=== PATIENT | female | born 1970 | race Caucasian/White ===

== ENCOUNTER 2017-09-01 07:41 | Inpatient (IN) ==
--- NOTE | 2017-08-31 09:12 | Discharge Summary ---
Date of Encounter: 09/03/17 Time of Encounter: 06:36 - Discharge Diagnosis (1) Status post total left knee replacement Priority: Primary Status: Acute (2) Arthritis of left knee Priority: Primary Status: Chronic - Discharge Medications Home Medications: FLUoxetine HCl [Prozac] 20 mg PO DAILY 07/05/17 [History] Omeprazole 10 mg PO DAILY 07/05/17 [History] SUMAtriptan Succinate [Imitrex] 100 mg PO AD PRN 07/05/17 [History] Aspirin Enteric Coated [Aspirin EC] 325 mg PO BID #20 tablet. 09/01/17 [Rx] Levonorgestrel-Ethin Estradiol [Trivora-28 Tablet] 1 each PO DAILY 09/01/17 [ History] OxyCODONE Immed Rel [Roxicodone 5 MG] 5 mg PO Q4HR PRN 5 Days #24 tablet [Rx] Allergies/Adverse Reactions: 3 Allergy/AdvReac Type Severity Reaction Status Date / Time No Known Allergies Allergy Verified 08/20/17 13:31 Primary care physician: Sonali Amezquita CNP - Patient Status Disposition: Home Health Service Condition: Good Functional capacity at discharge: uses cane/walker Overall status at discharge: patient is progressing back to baseline - Discharge Instructions Follow Up With: Sonali Amezquita CNP [Primary Care Provider] - - Hospital Course Hospital course: Ms. Rivera is a 46 year old female Status post left total knee replacement The patient had an uneventful postoperative course. They received antibiotics and physical therapy and were discharged in stable condition. There will follow -up in the office in 2 weeks. - Time Spent with Patient Total time spent providing and/or coordinating discharge services:
--- NOTE | 2017-09-01 07:51 | History & Physical Report ---
Date of Encounter: 09/01/17 Time of Encounter: 07:50 24 Hour HP Update - Instructions Instructions: If the History and Physical is less than 30 days old and was completed prior to A.M. admission and or procedure and has NOT been updated on calendar day of procedure please complete this update prior to performing procedure. - Update Patient reports changes in Medical Condition: No Changes in examination, assessment, or condition: No Changes in Medication: No Preop tests/diagnostics Reviewed: Yes Surgery Remains Indicated: Yes Consent for Planned Operative Procedure(s) Verified: Yes - Pre-Operative Checklist Preoperative Checklist Indicated: No Prophylactic Antibiotic Ordered: Yes Is VTE Prophylaxis Indicated?: Yes
[2017-09-01] MEDS ORDERED: CeFAZolin Syr 2,000MG/20 ML 2,000 MG/20 ML SYRINGE IVPB ONE (07:58)
[2017-09-01] MEDS ORDERED: Plasma-Lyte A (PH 7.4) 1,000 ML IVC SCH (08:00)
[2017-09-01] MEDS ORDERED: Ethanol\\Acetic Acid\\Na Ace\\Ben 1,000 ML IRRIG.SOLN IR ONE (08:10)
--- NOTE | 2017-09-01 08:24 | Anesthesia Evaluation PreOp ---
Date of Encounter: 09/01/17 Time of Encounter: 08:21 - Past History Planned Operation: left total knee Cardiac History: Denies any Significant Hx Pulmonary History: Denies Any Significant HX STUDIO CAMERA OPERATOR History: Denies Any Significant HX Other Medical History: GERD, Other (migraines, depression) Anesthesia History: No Prior Anesthetic Complications, Past Anesthesia (knee scope, breast reduction) Test: Negative (09/01/2017) Alcohol Use: none Drug use: none Medications and Allergies Clindamycin [Cleocin] 150 mg PO Q6HR #7 capsule 07/05/17 [Rx] FLUoxetine HCl [Prozac] 20 mg PO DAILY 07/05/17 [History] HYDROcodone/Acet 5/325 mg [Sealy 5-325 mg] 1 tab PO Q6H PRN #14 tab 07/05/17 [Rx ] Ibuprofen [Motrin] 600 mg PO Q8HR #20 tab 07/05/17 [Rx] Omeprazole 10 mg PO DAILY 07/05/17 [History] SUMAtriptan Succinate [Imitrex] 100 mg PO AD PRN 07/05/17 [History] Aspirin Enteric Coated [Aspirin EC] 325 mg PO BID #20 tablet. 09/01/17 [Rx] OxyCODONE Immed Rel [Roxicodone 5 MG] 5 mg PO Q4HR PRN 5 Days #24 tablet [Rx] 3 Allergy/AdvReac Type Severity Reaction Status Date / Time No Known Allergies Allergy Verified 08/20/17 13:31 - Meds/Allergy Pre-op Review Medications Reviewed: Yes Allergies Reviewed: Yes Beta Blockers on Current Med List: No Anesthesia Results - Labs Laboratory Tests 08/20/17 08/20/17 08/20/17 13:56 13:56 13:56 WBC 6.3 RBC 4.14 Hgb 13.2 Hct 39.7 Plt Count 319 PT 10.4 INR 1.0 APTT 29.3 Sodium 137 Potassium 3.4 L Chloride 110 H Carbon Dioxide 19 L BUN 10 Creatinine 0.60 Anesthesia Exam O2 Sat Height 1.63 m Height 1.63 m Height 0 cm Weight 93.894 kg Weight 93.894 kg Weight 0 g O2 Sat by Pulse Oximetry 98 O2 Sat by Pulse Oximetry 98 O2 Sat by Pulse Oximetry 98 O2 Sat by Pulse Oximetry 99 Vital Signs Temp Pulse Resp BP Pulse Ox 98 F 90 16 148/89 99 09/01/17 07:45 09/01/17 07:45 09/01/17 07:45 09/01/17 07:45 09/01/17 07:45 Height: 5'4'' Weight: 207 lbs NPO (# of Hours): 8 Pain Scale: 0 Pain Scale Used: Numeric (1 - 10) - HEENT Pupil (Motor): Pupils equal Mallampati: II Teeth: Normal Oral Opening: Greater than 3 - STUDIO CAMERA OPERATOR LOC: Oriented STUDIO CAMERA OPERATOR Motor: Normal RUE, Normal LUE, Normal RLE, Normal LLE, Normal Face STUDIO CAMERA OPERATOR Sensory: Normal: RUE, LUE, RLE, LLE, Face - Cardiac Rhythm: Regular Murmur: None JVD: No Carotid Bruit: No - Pulmonary Breath Sounds: bilateral Clear Respiratory Effort: Symmetrical Anesthesia Assess/Plan ASA Score: 2 Modified Do Scale for Level of Consciousness: Cooperative, oriented, and tranquil Anesthetic Plan: Regional Monitoring Plan: Standard Monitors Recovery Plan: PACU
[2017-09-01] MEDS ORDERED: *HR* Morphine Sulfate/PF 10 MG/10 ML AMPUL ONE (08:41)
[2017-09-01] MEDS ORDERED: *HR* Ropivacaine/PF 0.5% 20 ML VIAL ONE (08:41)
[2017-09-01] MEDS ORDERED: *HR* Midazolam HCl 5 MG/5 ML VIAL IVP ONE (08:45)
[2017-09-01] MEDS ORDERED: *HR* FentaNYL (PF) 100 MCG/2 ML VIAL ONE (08:45)
[2017-09-01] MEDS ORDERED: Propofol 500 MG/50 ML INFUS..BTL ONE (08:55)
[2017-09-01] MEDS ORDERED: Ondansetron 4 MG/2 ML VIAL IVP ONE (09:22)
[2017-09-01] MEDS ORDERED: *HR* OxyCODONE Immed Rel 5 MG TABLET PO PRN (09:22)
[2017-09-01] MEDS ORDERED: *HR* Propofol 200 MG/20 ML VIAL IVP ONE (10:52)
--- NOTE | 2017-09-01 11:05 | Anesthesia Procedures ---
Date of Encounter: 09/01/17 Time of Encounter: 11:03 Procedures: Anesthesia - Nerve Block Procedure Date: 09/01/17 Time: 08:45 Allergies/Adv Reactions: No Known Allergies Allergy (Verified 08/20/17 13:31) Pre-op Diagnosis: oa left knee Surgical Procedure: orif left knee Checklist: Correct Patient Identifier, Correct procedure, History checked Correct side: Left Blood Thinner: No Monitor Applied: EKG, BP, Pulse Oximetry Supplemental Oxygen via Nasal Cannula (L/min): 2 Sedation: Versed (mg): 5 Sedation: Fentanyl (mcg): 100 Indication: Post Op Analgesia Pre-op Neuro Deficits: No Block Type: Femoral Catheter placed: No Sterile Technique: Yes Ultrasound used: Yes Anatomy identified: Yes Visual spread of Local: Yes Neuro Stimulation: No Blood on Needle Aspiration: No Smooth Injection of Local: Yes Pain with Injection of Local: No Prep: Chlorhexadine Needle: 22 x 50 mm Stimuplex Local: Ropivacaine (0.5) Volume (cc): 30 Number of Attempts: 1 Complications: None/effective block
[2017-09-01] MEDS ORDERED: Sennosides 8.6 MG TABLET PO PRN (12:05)
[2017-09-01] MEDS ORDERED: Naloxone 0.4 MG/ML INJ IVP PRN (12:05)
[2017-09-01] MEDS ORDERED: Ringers Solution, Lactated 1,000 ML IVC SCH (12:05)
[2017-09-01] MEDS ORDERED: Temazepam 15 MG CAPSULE PO PRN (12:05)
[2017-09-01] MEDS ORDERED: MOM Conc 10 ML UD.LIQ PO PRN (12:05)
--- NOTE | 2017-09-01 12:13 | Anesthesia Evaluation Post Op ---
Date of Encounter: 09/01/17 Time of Encounter: 12:13 - Vital Signs Vital Signs: Vital Signs/O2 Sat, Most Current Temp Pulse Resp BP Pulse Ox 98.0 F 87 16 148/89 98 09/01/17 09:32 09/01/17 09:32 09/01/17 09:32 09/01/17 09:32 09/01/17 09:32 - Lungs Lungs: Clear Ascult./Percussion - Airway Airway: Non-obstructed - Cardiovascular Regular Rate - Mental Status Mental Status: Alert & Oriented, Answers Appropriately - Pain Pain Scale: 0 Pain Scale used: Numeric (1 - 10) - Nausea Vomiting Nausea Vomiting: Not Present - Hydration Hydration: Tolerates oral liquids, Has not voided - Discharge PostOp Status: Transfer Patient to floor
[2017-09-01] MEDS: Ondansetron 4 MG/2 ML VIAL IVP PRN ×2 (12:28→18:31)
[2017-09-01] MEDS: Plasma-Lyte A (PH 7.4) 1,000 ML IVC SCH (12:48)
[2017-09-01 13:13] LABS: Hematocrit 35.9 % (35.3-44.9); Hemoglobin 12.2 g/dL (11.5-15.4)
[2017-09-01] MEDS ORDERED: *HR* Promethazine 25 MG/ML VIAL IVP PRN (13:19)
--- NOTE | 2017-09-01 13:58 | Orthopedic Operative Note ---
Date of procedure: 09/01/17 Pre-op diagnosis: Left knee arthritis Procedure: Procedure: Left robotic-assisted Total knee replacement Estimated blood loss: 300 cc Hardware: Metal and polyethylene replacement. Brayden Femur: 3 Tibia: 3 PS insert: 13 Patella: 33 Exam Under anesthesia: Hyperextension 7 degrees 4 degrees varus as calculated by the robot full flexion and no instability Procedural Notes: Grade 3 arthritic changes patellofemoral joint medial compartment Operative procedure: The patient was brought to the operating room and placed on the operating room table. After general anesthesia was administered the operative knee was examined. Findings were noted in the exam under anesthesia. The operative extremity was prepped and draped in sterile surgical fashion. The patient received IV antibiotics prior to skin incision. A standard midline incision was made centered over the patella. The incision was made through the skin and subcutaneous tissue. A medial parapatellar tendon approach was performed. Care was taken to preserve tissue along the medial aspect of the patella. And to protect the patella tendon. The deep MCL was released off the medial tibia. The infra patella fat pad was excised. The patella was everted and cut was made at the level of the insertion of the quadriceps and patella tendon. The patella was sized to 33 the guide was seated and the lug holes are drilled. Knee was brought into flexion. Patient noted to have grade 3 arthritic changes medial compartment patellofemoral joint. Steinmann pins were placed in the tibia and the femur for the tibial and femoral arrays respectively. Checkpoints were also placed in the tibia and the femur for calculation purposes. The knee including the femur and the tibial registered. Osteophytes , ACL and PCL were excised at this point. Extension and flexion were assessed with a valgus stress components were adjusted on the computer to balance the knee. Femoral cuts were made first with robotic assistance, these included the anterior cut posterior cuts chamfer cuts. Tibial cut was then performed with robotic assistance as well. Bone fragments were removed, as well as the medial and lateral meniscus. The size 3 femoral guide was seated box cut was made lug holes are drilled. The size 3 tibial tray was seated and prepared with the fin cutter. Trial reduction with the 13 PS Bing revealed extension of 0 degree, 0 degrees varus and full flexion. No varus valgus instability. Trial reduction revealed excellent patella tracking. All trial components were removed all bony surfaces were irrigated. The Tibia was seated followed by the femur, The Bing size 13 was seated and secured patella. Patient had similar findings for motion and stability. The knee was closed by the PA. The knee was then irrigated out with 2 L of pulse irrigation. The extensor mechanism was closed with #2 FiberWire suture and #2 PDS suture. The subcutaneous tissue was then irrigated and closed deep with #1 PDS suture superficially with 0 PDS suture and skin was closed with zip tie The patient was then placed in a sterile dressing and a postoperative brace extubated and transferred to recovery room in stable condition. Anesthesia: GETA Surgeon: Evan Palm Was there an assistant portfolio manager present: Yes Associate Professor Computer Science: Margarita Louis Estimated blood loss (cc): 300 Condition: stable Disposition: PACU
[2017-09-01] MEDS ORDERED: SUMAtriptan succinate 50 MG TABLET PO PRN (15:14)
[2017-09-01] MEDS: CeFAZolin Premix DUPLEX 2,000 MG/50 ML BAG IVPB SCH (16:49)
[2017-09-01] MEDS: *HR* Enoxaparin 30 MG/0.3 ML SYRINGE SQ SCH (16:49)
[2017-09-01] MEDS ORDERED: *HR* Enoxaparin 30 MG/0.3 ML SYRINGE SQ SCH (18:00)
[2017-09-01] MEDS: *HR* OxyCODONE Immed Rel 5 MG TABLET PO PRN ×2 (18:34→22:23)
[2017-09-01] MEDS ORDERED: Scopolamine Patch 1.5 MG PATCH.TD72 TD ONE (18:37)
[2017-09-02] MEDS: CeFAZolin Premix DUPLEX 2,000 MG/50 ML BAG IVPB SCH (01:26)
[2017-09-02] MEDS: *HR* OxyCODONE Immed Rel 5 MG TABLET PO PRN ×4 (02:50→20:05)
[2017-09-02 04:37] LABS: Hematocrit 35.1 % (35.3-44.9); Hemoglobin 11.6 g/dL (11.5-15.4)
[2017-09-02 04:52] LABS: BUN/Creatinine Ratio 13 (6-26); Blood Urea Nitrogen 9 mg/dL (6-20); Calcium 8.4 mg/dL (8.6-10.3); Carbon Dioxide 24 mEq/L (23-29); Chloride 103 mEq/L (98-107); Glucose 140 mg/dL (70-105); Osmolality,Calculated 279 (280-300); Potassium 3.7 mEq/L (3.5-5.1); Sodium 134 mEq/L (136-145); eGFR For African Americans > 60 (> 60); eGFR For Non-African Americans > 60 (> 60)
[2017-09-02] MEDS: *HR* Enoxaparin 30 MG/0.3 ML SYRINGE SQ SCH ×2 (06:14→17:48)
[2017-09-02] MEDS: OMEPRAZOLE 10 MG PO SCH (06:15)
[2017-09-02] MEDS: FLUoxetine HCl Oral Soln 20 MG/5 ML UDC PO SCH (08:39)
[2017-09-02] MEDS: Plasma-Lyte A (PH 7.4) 1,000 ML IVC SCH (11:24)
[2017-09-02] MEDS ORDERED: Acetaminophen 325 MG TABLET PO PRN (14:49)
[2017-09-02 15:07] LABS: Hematocrit 34.3 % (35.3-44.9); Hemoglobin 11.9 g/dL (11.5-15.4)
--- NOTE | 2017-09-02 17:40 | Orthopedics Progress Note ---
Date of Encounter: 09/02/17 Time of Encounter: 17:38 Subjective Principal diagnosis: Status post left total knee replacement Interval history: The patient is without complaints. Afebrile vital signs are stable. Incision is clean dry and intact. Neurovascularly intact with regard to bilateral lower extremities. Assessment :stable. Plan mobilize ,continue analgesics, discharge planning. Objective Vital signs: Vital Signs Temp Pulse Resp BP Pulse Ox 09/02/17 17:10 104 90 09/02/17 15:20 101 16 94 09/02/17 14:38 98 F 103 22 126/89 92 09/02/17 10:00 97.6 F 84 16 129/86 95 09/02/17 06:34 97.9 F 87 16 126/84 94 09/02/17 04:14 97.6 F 92 17 128/84 91 09/02/17 01:30 98.3 F 94 17 123/74 92 09/01/17 18:52 98.3 F 89 14 110/75 96 Intake and Output 09/02/17 09/02/17 09/02/17 07:59 15:59 23:59 Intake Total 200 / 200 240 / 240 Output Total 150 / 150 350 / 350 Balance 50 / 50 -110 / -110 Intake: Oral 200 / 200 240 / 240 Output: Urine 150 / 150 350 / 350 Other: Percent of Meal Consumed 50% - Labs CBC & BMP: 09/02/17 14:55 09/02/17 04:02 Labs: Abnormal lab results Hct 34.3 % (35.3-44.9) L 09/02/17 14:55 Sodium 134 mEq/L (136-145) L 09/02/17 04:02 Glucose 140 mg/dL (70-105) H 09/02/17 04:02 Calculated Osmolality 279 (280-300) L 09/02/17 04:02 Calcium 8.4 mg/dL (8.6-10.3) L 09/02/17 04:02 - VTE Documentation of Mechanical Device: Venous foot pump, device Consult Discharge Plan - Plan Referrals: Sonali Amezquita, DISPENSING OPTICIAN [Primary Care Provider] -
[2017-09-03] MEDS: *HR* OxyCODONE Immed Rel 5 MG TABLET PO PRN ×4 (01:40→16:03)
[2017-09-03 05:22] LABS: BUN/Creatinine Ratio 8 (6-26); Blood Urea Nitrogen 5 mg/dL (6-20); Calcium 8.6 mg/dL (8.6-10.3); Carbon Dioxide 27 mEq/L (23-29); Chloride 101 mEq/L (98-107); Glucose 124 mg/dL (70-105); Osmolality,Calculated 281 (280-300); Potassium 3.5 mEq/L (3.5-5.1); Sodium 136 mEq/L (136-145); eGFR For African Americans > 60 (> 60); eGFR For Non-African Americans > 60 (> 60)
[2017-09-03] MEDS: *HR* Enoxaparin 30 MG/0.3 ML SYRINGE SQ SCH ×2 (05:37→19:35)
[2017-09-03 05:38] LABS: Hemoglobin 11.4 g/dL (11.5-15.4)
--- NOTE | 2017-09-03 06:37 | Orthopedics Progress Note ---
Date of Encounter: 09/03/17 Time of Encounter: 06:37 - Assessment and Plan (1) Status post total left knee replacement Current Visit: Yes Status: Acute (2) Arthritis of left knee Current Visit: No Status: Chronic Subjective Principal diagnosis: Status post left total knee replacement Interval history: Patient was seen this morning doing well without complaints. Afebrile vital signs stable. Operative extremity: Neurovascularly intact Dressing clean dry and intact Calves nontender Assessment and plan: Continue with postoperative care Hematocrit 34 discharged Objective Vital signs: Vital Signs Temp Pulse Resp BP Pulse Ox 09/03/17 04:12 98.0 F 101 17 127/83 92 09/03/17 00:01 98.1 F 93 18 128/80 93 09/02/17 19:36 97.9 F 98 18 126/84 93 09/02/17 18:00 105 90 09/02/17 17:10 104 90 09/02/17 15:20 101 16 94 09/02/17 14:38 98 F 103 22 126/89 92 09/02/17 10:00 97.6 F 84 16 129/86 95 Intake and Output 09/02/17 09/02/17 09/03/17 15:59 23:59 07:59 Intake Total 240 / 240 200 / 200 800 / 800 Output Total 350 / 350 Balance -110 / -110 200 / 200 800 / 800 Intake: Oral 240 / 240 200 / 200 800 / 800 Output: Urine 350 / 350 Other: Percent of Meal Consumed 50% # Voids 1 1 Weight 95.3 kg Patient Weight 09/03/17 23:59 Weight 95.3 kg - Labs CBC & BMP: 09/03/17 04:22 09/03/17 04:22 Labs: Abnormal lab results Hgb 11.4 g/dL (11.5-15.4) L 09/03/17 04:22 Hct 34.0 % (35.3-44.9) L 09/03/17 04:22 BUN 5 mg/dL (6-20) L 09/03/17 04:22 Glucose 124 mg/dL (70-105) H 09/03/17 04:22 - VTE Documentation of Mechanical Device: Venous foot pump, device Consult Discharge Plan - Plan Referrals: Sonali Amezquita, SHOVEL ENGINEER [Primary Care Provider] -
[2017-09-03] MEDS: Plasma-Lyte A (PH 7.4) 1,000 ML IVC SCH (08:01)
[2017-09-03] MEDS: OMEPRAZOLE 10 MG PO SCH (08:01)
[2017-09-03] MEDS: FLUoxetine HCl Oral Soln 20 MG/5 ML UDC PO SCH (08:22)
[2017-09-03 12:28] LABS: Albumin 3.5 g/dL (3.5-5.7); Bilirubin,Total 0.6 mg/dL (0.3-1.0); Calcium 8.5 mg/dL (8.6-10.3); Carbon Dioxide 23 mEq/L (23-29); Chloride 104 mEq/L (98-107); Potassium 3.4 mEq/L (3.5-5.1); Sodium 138 mEq/L (136-145)
[2017-09-03 12:30] LABS: Basophils % 0.1 %; Eosinophils # 0.1 K/mcL (0.0-0.6); Eosinophils % 0.8 %; Hematocrit 32.7 % (35.3-44.9); Immature Granulocytes % 0.7 % (0-4); Lymphocytes # 1.2 K/mcL (0.6-4.6); Lymphocytes % 13.2 %; Mean Corpuscular HGB Conc 33.6 g/dL (31.6-35.5); Mean Corpuscular Hemoglobin 32.2 pg (28.0-33.3); Mean Corpuscular Volume 95.6 fL (83.0-100.0); Mean Platelet Volume 10.9 fL (9.4-12.4); Monocytes # 0.9 K/mcL (0.0-1.3); Platelet Count 179 K/mcL (140-400); Red Blood Count 3.42 M/mcL (3.82-4.97); Red Cell Distribution Width 13.9 % (11.5-14.5); Segmented Neutrophils % 75.2 %
[2017-09-03 12:34] LABS: Alanine Aminotransferase 6 Units/L (7-52); Albumin/Globulin Ratio 1.2 (1.1-2.2); Alkaline Phosphatase 71 Units/L (34-104); Aspartate Amino Transferase 12 Units/L (13-39); BUN/Creatinine Ratio 7 (6-26); Blood Urea Nitrogen 4 mg/dL (6-20); Globulin 2.9 g/dL (2.4-3.5); Glucose 105 mg/dL (70-105); Osmolality,Calculated 283 (280-300); Total Protein 6.4 g/dL (6.4-8.9); eGFR For African Americans > 60 (> 60); eGFR For Non-African Americans > 60 (> 60)
[2017-09-03 13:00] LABS: Neutrophils # 6.8 K/mcL (1.6-8.9)
--- NOTE | 2017-09-03 13:15 | Event Note ---
Date of Encounter: 09/03/17 Time of Encounter: 12:00 I was notified by nursing staff that patient was experiencing new onset shortness of breath with exertion while she was ambulating to the restroom. Vitals normal, no diaphoresis. Labs ordered, reviewed. Troponin 0.04, may be a result from recent surgery. EKG showing sinus rhythm. Will repeat troponin in [address] angio ordered to rule out PE secondary to immobilization, recent surgery and new onset SOB. Powerglide needed. Cardiology consulted for further workup of new onset dyspnea with exertion.
--- NOTE | 2017-09-03 16:12 | Cardiology Consult Note ---
Date of Encounter: 09/03/17 Time of Encounter: 16:08 Assessment and Plan (1) SOB (shortness of breath) Current Visit: Yes Status: Acute SOB without chest pain in a young female without CRF's and an unremarkable EKG. Possible demand ischemia on troponin of .04 due to hypoxemia. Serial cardiac markers and ECHO will be obtained to rule out an ischemic event and SHD. If RWMA on ECHO will consider stress test unless elevated CE's which would result in a C instead Discussion w patient/family: The assessment and plan as outlined above was discussed with the patient and/or family members who expressed understanding and agreement. All questions were answered. Thank you for involving us in the care of your patient. Please call with any questions. History of Present Illness Consult date: 09/03/17 Consult reason: Elevated troponin Chief complaint: SOB History of present illness: Ms. Rivera is a 46 year old female no significant CRF's POD # 2 after knee surgery describing NORTH, and low oxygen sats. She has described knee pain for which she received pain meds requiring narcan for reversal at one point. This may have resulted in respiratory depression also along with brderline desaturation. CTA was negative for PE and madisyn no signs of volume overload. EKG is unremarkable and she is denies any chest pain, orthopnea and PND. Past Med Surg Social Fam HX - Past Medical History Medical history: GERD, migraine Psychiatric history: anxiety, depression - Past Surgical History Surgical History: non-contributory - Social History Smoking Status: Former smoker Smokeless Tobacco Status: No Alcohol use: none Drug use: none - Family History Father History Unknown: Yes Hx Family Cancer: Yes (skin cancer) Medications and Allergies FLUoxetine HCl [Prozac] 20 mg PO DAILY 07/05/17 [History] Omeprazole 10 mg PO DAILY 07/05/17 [History] SUMAtriptan Succinate [Imitrex] 100 mg PO AD PRN 07/05/17 [History] Aspirin Enteric Coated [Aspirin EC] 325 mg PO BID #20 tablet. 09/01/17 [Rx] Levonorgestrel-Ethin Estradiol [Trivora-28 Tablet] 1 each PO DAILY 09/01/17 [ History] OxyCODONE Immed Rel [Roxicodone 5 MG] 5 mg PO Q4HR PRN 5 Days #24 tablet [Rx] 3 Allergy/AdvReac Type Severity Reaction Status Date / Time No Known Allergies Allergy Verified 08/20/17 13:31 All Systems Review: The remainder of the systems were reviewed and are negative Physical Examination Vital Signs, Last 4 Hours Temp Pulse Resp BP Pulse Ox 09/03/17 14:52 98.9 F 106 18 122/81 96 General: Conversant, No Apparent Distress HEENT: Atraumatic, Normocephaly, Mucus Membranes Moist Neck: No JVD, Normal carotid pulses Cardiac: Reg Rate and Rhythm, Normal S1 and S2, No Murmur Lungs: Normal Breath Sounds, No Wheeze, Rales, Rhonchi Neuro: Alert and responsive, No focal deficits noted Abdomen: Soft, Non-Tender Skin: No rashes noted on visualized skin Musculoskeletal: No Chest Wall Tenderness Extremities: No Clubbing, No Cyanosis, No Edema, Normal Pulses Results 09/03/17 11:47 09/03/17 11:47 Lab Results 09/03/17 09/03/17 09/03/17 04:22 04:22 11:47 WBC 9.1 Hgb 11.4 L 11.0 L Hct 34.0 L 32.7 L Plt Count 179 Sodium 136 Potassium 3.5 Chloride 101 Carbon Dioxide 27 BUN 5 L Creatinine 0.65 Glucose 124 H Calcium 8.6 Total Bilirubin AST ALT Alkaline Phosphatase Troponin I 09/03/17 09/03/17 11:47 11:47 WBC Hgb Hct Plt Count Sodium 138 Potassium 3.4 L Chloride 104 Carbon Dioxide 23 BUN 4 L Creatinine 0.54 L Glucose 105 Calcium 8.5 L Total Bilirubin 0.6 AST 12 L ALT 6 L Alkaline Phosphatase 71 Troponin I 0.04 H* Consult Discharge Plan - Plan Additional Instructions: Discharge Instructions: Total Knee Replacement Please call [facility] ([phone]), your Primary Care Physician, or report to the Emergency Room if you have any of the following symptoms: Nausea, vomiting, fever greater that 101.5, swelling, chest pain, shortness of breath, increased pain/redness/drainage/odor for your incision site, numbness/ tingling, or any other concerning symptoms. ACTIVITY:Weight-bearing as tolerated. You may progress off support (crutches or walker) as tolerated. MEDICATIONS: Upon discharge resume your home medications. Take all the medications as prescribed. Take a stool softener if taking narcotic pain medications. Stool softeners are only effective if you drink enough fluids. Drink 6-8 glass of water or fluids a day, unless this is not allowed for another health problem. Despite using stool softeners, if you haven't had a bowel movement in 3 days, please switch to a gentle laxative. Gentle laxatives are sold over the counter. You should have a bowel movement within 24 hours, if not call the office. You will be discharged from the hospital with a prescription for pain medication. You are encouraged to decrease the use of narcotic pain medication as tolerated. Should you require a refill, please call the office. [facility] prescribes narcotic pain medication for only 4-6 weeks after surgery. If you require pain medication beyond this time period, you may be referred to your Primary Care Physician or to the Pain Clinic for further evaluation. Plan ahead for refills on pain medication as many narcotics either need to be picked up at the office or mailed. It is best to call 48-72 hours in advance of needing a prescription refill so you don't run out of medication. To help control the post-operative pain, you may take NSAIDs (Aleve,Advil, Motrin, Ibuprofen, Naprosyn) or Tylenol as prescribed on the bottle in addition to the pain medication. ANTICOAGULATION (blood thinners): Continue your Aspirin, Lovenox or Coumadin as prescribed to help prevent a blood clot in the leg or in the lungs. As long as your incision remains dry and you tolerate the NSAIDs (Aleve, Advil, Motrin, ibuprofen, naprosyn), it is OK to use the NSAIDS while you are taking your anticoagulation medication. Should your incision start to drain, stop the NSAID and contact our office. Common symptoms of blood clot in the legs include: localized pain, swelling, calf tenderness, redness or discoloration of the skin. Blood clot in the lung symptoms include: shortness of breath, rapid pulse, sweating, and chest pain that worsens with deep breathing, coughing up blood, lightheadedness, feelings of anxiety. If you experience any of these symptoms notify your physician immediately, go to the emergency room, or if having trouble breathing, call 911. WOUND CARE: Leave the dressing on for 7 to 10days. You may change the dressing if it becomes saturated greater than 50%. Do not get the dressing wet at anytime. Wash your hands with antibacterial soap, rinse and dry prior to any wound care. If you have candie the visiting nurse or rehab facility can remove the stapes 10-14 days after surgery and place steri-strips across the wound. Leave the steri-strips in place until they fall off on their won. You may let water from the shower run on top of the steri-strips. If you do not have a visiting nurse or rehab facility, you will need to return to the office at 10-14 days for the candie to be removed. If you have itching or redness around the dressing call the office. FOLLOW-UP: Please follow up with your surgeon in the orthopedic clinic in 4 weeks from the day of surgery. If you have candie that need to be removed, you will need to come back to the office in 10-14 days from the day of surgery. Referrals: Sonali Amezquita, PLANNING SPECIALIST [Primary Care Provider] -
[2017-09-04 00:02] LABS: Adenovirus Not Detected (Not Detect); Bordetella Pertussis Not Detected (Not Detect); Chlamydophila pneumoniae Not Detected (Not Detect); Coronavirus 229E Not Detected (Not Detect); Coronavirus HKU1 Not Detected (Not Detect); Coronavirus NL63 Not Detected (Not Detect); Coronavirus OC43 Not Detected (Not Detect); Human Metapneumovirus Not Detected (Not Detect); Human Rhinovirus/Enterovirus Not Detected (Not Detect); Influenza A Subtype 2009 H1 Not Detected (Not Detect); Influenza A Untypeable Not Detected (Not Detect); Influenza B Not Detected (Not Detect); Mycoplasma pneumoniae Not Detected (Not Detect); Parainfluenza Virus 1 Not Detected (Not Detect); Parainfluenza Virus 2 Not Detected (Not Detect); Parainfluenza Virus 3 Not Detected (Not Detect); Parainfluenza Virus 4 Not Detected (Not Detect); Respiratory Syncytial Virus Not Detected (Not Detect)
[2017-09-04] MEDS: *HR* OxyCODONE Immed Rel 5 MG TABLET PO PRN ×4 (01:08→14:58)
[2017-09-04] MEDS: *HR* Enoxaparin 30 MG/0.3 ML SYRINGE SQ SCH ×2 (05:46→17:17)
--- NOTE | 2017-09-04 06:17 | Orthopedics Progress Note ---
Date of Encounter: 09/04/17 Time of Encounter: 06:16 - Assessment and Plan (1) Status post total left knee replacement Current Visit: Yes Status: Acute (2) Arthritis of left knee Current Visit: No Status: Chronic Subjective Principal diagnosis: Status post left total knee replacement Interval history: Patient was seen this morning doing well without complaints. Patient with postoperative hypoxemia yesterday being evaluated by cardiology, negative for PE Afebrile vital signs stable. Operative extremity: Neurovascularly intact Dressing clean dry and intact Calves nontender Assessment and plan: Continue with postoperative care Discharge pending cardiac workup Objective Vital signs: Vital Signs Temp Pulse Resp BP Pulse Ox 09/04/17 03:38 98.3 F 95 18 123/83 93 09/04/17 00:00 98.2 F 94 18 121/80 91 09/03/17 19:40 98.0 F 92 18 126/86 92 09/03/17 14:52 98.9 F 106 18 122/81 96 09/03/17 11:11 97.8 F 98 18 131/85 96 09/03/17 08:03 91 09/03/17 06:36 98.6 F 99 18 133/85 91 Intake and Output 09/03/17 09/03/17 09/04/17 15:59 23:59 07:59 Intake Total 120 / 120 450 / 450 400 / 400 Balance 120 / 120 450 / 450 400 / 400 Intake: Oral 120 / 120 450 / 450 400 / 400 Other: Meal Breakfast Percent of Meal Consumed 10% # Voids 2 1 1 Weight 95.1 kg Patient Weight 09/04/17 23:59 Weight 95.1 kg - Labs CBC & BMP: 09/03/17 11:47 09/03/17 11:47 Labs: Abnormal lab results RBC 3.42 M/mcL (3.82-4.97) L 09/03/17 11:47 Hgb 11.0 g/dL (11.5-15.4) L 09/03/17 11:47 Hct 32.7 % (35.3-44.9) L 09/03/17 11:47 Potassium 3.4 mEq/L (3.5-5.1) L 09/03/17 11:47 BUN 4 mg/dL (6-20) L 09/03/17 11:47 Creatinine 0.54 mg/dL (0.60-1.20) L 09/03/17 11:47 Calcium 8.5 mg/dL (8.6-10.3) L 09/03/17 11:47 AST 12 Units/L (13-39) L 09/03/17 11:47 ALT 6 Units/L (7-52) L 09/03/17 11:47 Troponin I 0.04 ng/mL (< 0.04) H* 09/03/17 16:30 - VTE Documentation of Mechanical Device: Venous foot pump, device Consult Discharge Plan - Plan Additional Instructions: Discharge Instructions: Total Knee Replacement Please call [facility] ([phone]), your Primary Care Physician, or report to the Emergency Room if you have any of the following symptoms: Nausea, vomiting, fever greater that 101.5, swelling, chest pain, shortness of breath, increased pain/redness/drainage/odor for your incision site, numbness/ tingling, or any other concerning symptoms. ACTIVITY:Weight-bearing as tolerated. You may progress off support (crutches or walker) as tolerated. MEDICATIONS: Upon discharge resume your home medications. Take all the medications as prescribed. Take a stool softener if taking narcotic pain medications. Stool softeners are only effective if you drink enough fluids. Drink 6-8 glass of water or fluids a day, unless this is not allowed for another health problem. Despite using stool softeners, if you haven't had a bowel movement in 3 days, please switch to a gentle laxative. Gentle laxatives are sold over the counter. You should have a bowel movement within 24 hours, if not call the office. You will be discharged from the hospital with a prescription for pain medication. You are encouraged to decrease the use of narcotic pain medication as tolerated. Should you require a refill, please call the office. [facility] prescribes narcotic pain medication for only 4-6 weeks after surgery. If you require pain medication beyond this time period, you may be referred to your Primary Care Physician or to the Pain Clinic for further evaluation. Plan ahead for refills on pain medication as many narcotics either need to be picked up at the office or mailed. It is best to call 48-72 hours in advance of needing a prescription refill so you don't run out of medication. To help control the post-operative pain, you may take NSAIDs (Aleve,Advil, Motrin, Ibuprofen, Naprosyn) or Tylenol as prescribed on the bottle in addition to the pain medication. ANTICOAGULATION (blood thinners): Continue your Aspirin, Lovenox or Coumadin as prescribed to help prevent a blood clot in the leg or in the lungs. As long as your incision remains dry and you tolerate the NSAIDs (Aleve, Advil, Motrin, ibuprofen, naprosyn), it is OK to use the NSAIDS while you are taking your anticoagulation medication. Should your incision start to drain, stop the NSAID and contact our office. Common symptoms of blood clot in the legs include: localized pain, swelling, calf tenderness, redness or discoloration of the skin. Blood clot in the lung symptoms include: shortness of breath, rapid pulse, sweating, and chest pain that worsens with deep breathing, coughing up blood, lightheadedness, feelings of anxiety. If you experience any of these symptoms notify your physician immediately, go to the emergency room, or if having trouble breathing, call 911. WOUND CARE: Leave the dressing on for 7 to 10days. You may change the dressing if it becomes saturated greater than 50%. Do not get the dressing wet at anytime. Wash your hands with antibacterial soap, rinse and dry prior to any wound care. If you have candie the visiting nurse or rehab facility can remove the stapes 10-14 days after surgery and place steri-strips across the wound. Leave the steri-strips in place until they fall off on their won. You may let water from the shower run on top of the steri-strips. If you do not have a visiting nurse or rehab facility, you will need to return to the office at 10-14 days for the candie to be removed. If you have itching or redness around the dressing call the office. FOLLOW-UP: Please follow up with your surgeon in the orthopedic clinic in 4 weeks from the day of surgery. If you have candie that need to be removed, you will need to come back to the office in 10-14 days from the day of surgery. Referrals: Sonali Amezquita, CAMPAIGN SPECIALIST [Primary Care Provider] -
[2017-09-04] MEDS: Plasma-Lyte A (PH 7.4) 1,000 ML IVC SCH (07:55)
[2017-09-04] MEDS: FLUoxetine HCl Oral Soln 20 MG/5 ML UDC PO SCH (07:58)
--- NOTE | 2017-09-04 10:00 | Cardiology Progress Note ---
Date of Encounter: 09/04/17 Time of Encounter: 09:00 Assessment and Plan (1) SOB (shortness of breath) Current Visit: Yes Status: Acute SOB without chest pain in a young female without CRF's and an unremarkable EKG. Likely demand ischemia on troponin of .04 x2 due to hypoxemia. CTA was negative. TTE shows preserved EF. No WMA, No significant valvular disease. Noted to have moderate pulmonary hypertension. Patient says feels she may have sleep apnea. Recommend out- pt sleep study. Increased SOB may have been related to pain meds. She required narcan during stay. Denies chest pain. No further testing from cardiac standpoint recommended at this time. Cardiology will sign off. Call with questions. Discussion w patient/family: The assessment and plan as outlined above was discussed with the patient and/or family members who expressed understanding and agreement. All questions were answered. Thank you for involving us in the care of your patient. Please call with any questions. Subjective Principal diagnosis: Status post left total knee replacement Interval history: Ms. Rivera stated that she was breathing better. Denies chest pain. Objective Vital Signs, Last 4 Hours Temp Pulse Resp BP Pulse Ox 09/04/17 06:27 97.9 F 89 18 121/80 94 General: Conversant, No Apparent Distress HEENT: Atraumatic, Normocephaly, Mucus Membranes Moist Neck: No JVD, Normal carotid pulses Cardiac: Reg Rate and Rhythm, Normal S1 and S2, No Murmur Lungs: Normal Breath Sounds, No Wheeze, Rales, Rhonchi Neuro: Alert and responsive, No focal deficits noted Abdomen: Soft, Non-Tender Skin: No rashes noted on visualized skin Musculoskeletal: No Chest Wall Tenderness Extremities: No Clubbing, No Cyanosis, No Edema, Normal Pulses Results 09/03/17 11:47 09/03/17 11:47 Lab Results 09/03/17 09/03/17 09/03/17 11:47 11:47 11:47 WBC 9.1 Hgb 11.0 L Hct 32.7 L Plt Count 179 Sodium 138 Potassium 3.4 L Chloride 104 Carbon Dioxide 23 BUN 4 L Creatinine 0.54 L Glucose 105 Calcium 8.5 L Total Bilirubin 0.6 AST 12 L ALT 6 L Alkaline Phosphatase 71 Troponin I 0.04 H* 09/03/17 16:30 WBC Hgb Hct Plt Count Sodium Potassium Chloride Carbon Dioxide BUN Creatinine Glucose Calcium Total Bilirubin AST ALT Alkaline Phosphatase Troponin I 0.04 H* - Imaging and Cardiology Echo: report reviewed - EKG Interpretation EKG results cardiology: personally reviewed (NSR with no ST changes) - VTE Documentation of Mechanical Device: Venous foot pump, device Consult Discharge Plan - Plan Additional Instructions: Discharge Instructions: Total Knee Replacement Please call [facility] ([phone]), your Primary Care Physician, or report to the Emergency Room if you have any of the following symptoms: Nausea, vomiting, fever greater that 101.5, swelling, chest pain, shortness of breath, increased pain/redness/drainage/odor for your incision site, numbness/ tingling, or any other concerning symptoms. ACTIVITY:Weight-bearing as tolerated. You may progress off support (crutches or walker) as tolerated. MEDICATIONS: Upon discharge resume your home medications. Take all the medications as prescribed. Take a stool softener if taking narcotic pain medications. Stool softeners are only effective if you drink enough fluids. Drink 6-8 glass of water or fluids a day, unless this is not allowed for another health problem. Despite using stool softeners, if you haven't had a bowel movement in 3 days, please switch to a gentle laxative. Gentle laxatives are sold over the counter. You should have a bowel movement within 24 hours, if not call the office. You will be discharged from the hospital with a prescription for pain medication. You are encouraged to decrease the use of narcotic pain medication as tolerated. Should you require a refill, please call the office. [facility] prescribes narcotic pain medication for only 4-6 weeks after surgery. If you require pain medication beyond this time period, you may be referred to your Primary Care Physician or to the Pain Clinic for further evaluation. Plan ahead for refills on pain medication as many narcotics either need to be picked up at the office or mailed. It is best to call 48-72 hours in advance of needing a prescription refill so you don't run out of medication. To help control the post-operative pain, you may take NSAIDs (Aleve,Advil, Motrin, Ibuprofen, Naprosyn) or Tylenol as prescribed on the bottle in addition to the pain medication. ANTICOAGULATION (blood thinners): Continue your Aspirin, Lovenox or Coumadin as prescribed to help prevent a blood clot in the leg or in the lungs. As long as your incision remains dry and you tolerate the NSAIDs (Aleve, Advil, Motrin, ibuprofen, naprosyn), it is OK to use the NSAIDS while you are taking your anticoagulation medication. Should your incision start to drain, stop the NSAID and contact our office. Common symptoms of blood clot in the legs include: localized pain, swelling, calf tenderness, redness or discoloration of the skin. Blood clot in the lung symptoms include: shortness of breath, rapid pulse, sweating, and chest pain that worsens with deep breathing, coughing up blood, lightheadedness, feelings of anxiety. If you experience any of these symptoms notify your physician immediately, go to the emergency room, or if having trouble breathing, call 911. WOUND CARE: Leave the dressing on for 7 to 10days. You may change the dressing if it becomes saturated greater than 50%. Do not get the dressing wet at anytime. Wash your hands with antibacterial soap, rinse and dry prior to any wound care. If you have candie the visiting nurse or rehab facility can remove the stapes 10-14 days after surgery and place steri-strips across the wound. Leave the steri-strips in place until they fall off on their won. You may let water from the shower run on top of the steri-strips. If you do not have a visiting nurse or rehab facility, you will need to return to the office at 10-14 days for the candie to be removed. If you have itching or redness around the dressing call the office. FOLLOW-UP: Please follow up with your surgeon in the orthopedic clinic in 4 weeks from the day of surgery. If you have candie that need to be removed, you will need to come back to the office in 10-14 days from the day of surgery. Referrals: Evan Palm MD [Partnered Physician] - 10/03/17 4:45 pm Margarita Louis, LÓPEZ [Physician Green Hide Inspector] - 09/13/17 9:15 am Sonali Amezquita CNP [Primary Care Provider] - 10/08/17 1:30 pm
[2017-09-04 15:12] VITALS: BP 121/83
--- NOTE | 2017-09-05 12:04 | Event Note ---
Date of Encounter: 09/04/17 Time of Encounter: 12:00 PCR- POD#5 09/01/17 Left robotic-assisted Total knee replacement Palm PCR - Patient seen at bedside. Pain control: Adequate Participating in PT. All questions and concerns addressed. Educated on use of incentive spirometer, ambulation, and hydration. Patient educated on post-operative restrictions and care. Addressed: concerns re: pulmonary hypertension. D/C plan: home with close PCP follow up re: pulm htn
--- NOTE | 2017-09-07 07:30 | Electrocardiograph Report ---
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
--- NOTE | 2017-09-07 07:31 | Electrocardiograph Report ---
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
== END 2017-09-04 19:15 | disposition home health service (06) | DRG 470 ==
LOC: SAMDAY 07:41 → 3NENU 12:06
PROVIDERS: ADMIT Orthopaedic Surgery; ATTEND Orthopaedic Surgery